=== PATIENT | female | born 1955 | race Caucasian/White ===

== ENCOUNTER → 2020-11-23 | Outpatient (CLI) | payer MEDICARE, OTHER ==
[2020-11-23 09:20] LABS: BLOOD UREA NITROGEN 13 MG/DL (7-18); CREATININE FOR GFR 0.65 MG/DL (0.55-1.30); GLOMERULAR FILTRATION RATE > 60.0 (>45)
== END ==
LOC: M LAB 07:57
PROVIDERS: ATTEND Surgery
DX: R10.12 Left upper quadrant pain (principal)

== ENCOUNTER → 2020-11-25 | Outpatient (CLI) | payer MEDICARE, OTHER ==
[~2020-11-25] MED LIST: GASTROGRAFIN SOLUTION 30ML (Q9963) As Ordered ONE; ISOVUE-370 76% 100ML VIAL As Ordered ONE
--- NOTE | 2020-11-25 12:44 | REP ---
INDICATION: LUQ PAIN. COMPARISON: None. TECHNIQUE: Standard helical technique after the intravenous administration of 100 cc Isovue 370 and oral bowel preparatory contrast administration. FINDINGS: The lung bases are clear. Minimal bibasilar subsegmental atelectatic changes are suspected. The pre contrast enhanced portion examination shows hepatic and splenic densities to be within normal limits. There are no nephroliths are cholelith. Postcontrast enhanced portion examination shows the liver, gallbladder, spleen, pancreas, and adrenal glands to be within normal limits. There are 2 tiny low-density foci seen in the anterior cortex of the superior pole of the left kidney. These are too small for precise CT characterization but likely represent tiny simple cortical cysts. The right kidney is unremarkable. The abdominal aorta and para-aortic regions are within normal limits. Small para-aortic lymph nodes are noted. The bowel loops and the mesenteries are within normal limits. The appendix is gas-filled but otherwise unremarkable. There is no free fluid or free air. There is no evidence of a mass or adenopathy. The osseous structures are within normal limits for the patient's age. IMPRESSION: There is no evidence of acute disease. CT findings are within normal limits as described above. Two probable tiny renal cysts as described. <Electronically signed by Taran Cisneros > 11/25/20 [id number]
== END ==
LOC: M RAD 09:54
PROVIDERS: ATTEND Surgery
DX: R10.12 Left upper quadrant pain (principal)
CPT/HCPCS: 74178; Q9963; Q9967

== ENCOUNTER 2022-10-28 08:08 | Day surgery (SDC) | payer MEDICARE, OTHER ==
[~2022-10-28] VITALS: Ht 160 cm; Wt 86.2 kg
[~2022-10-28 08:08] MED LIST changes: -GASTROGRAFIN SOLUTION 30ML (Q9963) As Ordered ONE; -ISOVUE-370 76% 100ML VIAL As Ordered ONE; +NS 1,000 ML IV ONE; +OMEG10002 PO; +OSTE5TAB PO; +TURM500T PO; +VITA100093 PO
[2022-10-28] MEDS ORDERED: propofoL 200 MG/20 ML VIAL As Ordered ONE ×2 (09:59→10:09)
[2022-10-28] MEDS ORDERED: GLYCOPYRROLATE INJ 0.2 MG/ML 2 ML VIAL As Ordered ONE (10:12)
[2022-10-28 10:56] VITALS: BP 134/60
== END 2022-10-28 10:58 | disposition home or self-care (01) ==
LOC: M OPP 08:08
PROVIDERS: ATTEND Internal Medicine Gastroenterology
DX: Z12.11 Encounter for screening for malignant neoplasm of colon (principal); Z86.010 Personal history of colon polyps; K63.5 Polyp of colon; D12.5 Benign neoplasm of sigmoid colon; K57.30 Diverticulosis of large intestine without perforation or abscess without bleeding; K64.8 Other hemorrhoids

== ENCOUNTER 2025-02-01 13:20 | Emergency (ER) | payer MEDICARE, OTHER ==
[~2025-02-01] VITALS: Ht 157.5 cm; Wt 89.0 kg
[~2025-02-01 13:20] MED LIST changes: -NS 1,000 ML IV ONE
[2025-02-01 14:40] LABS: BASO # 0.0 10^3/uL (0.0-0.2); BASO % 0.2 % (0.0-1.0); EOS # 0.1 10^3/uL (0.0-0.5); EOS % 1.3 % (0.0-3.0); LYMPH # 1.1 10^3/uL (1.5-5.0); LYMPH % 19.8 % (24.0-44.0); MONO # 0.4 10^3/uL (0.0-0.8); MONO % 7.3 % (2.0-8.0); NEUTROPHILS # 3.9 10^3/uL (1.5-8.5); NEUTROPHILS % 71.2 % (36.0-66.0); PLATELET COUNT, AUTOMATED 196 10^3/uL (150-450)
[2025-02-01 15:03] LABS: ALT/SGPT 15 U/L (7.0-40); AST/SGOT 17 U/L (<34); CALCIUM LEVEL 8.9 MG/DL (8.3-10.6); CARBON DIOXIDE LEVEL 27 MMOL/L (20-31); CHLORIDE LEVEL 105 MMOL/L (98-107); CK-MB VALUE MASS 2.0 NG/ML (<3.6); CREATININE FOR GFR 0.71 MG/DL (0.55-1.30); GLOMERULAR FILTRATION RATE > 90.0 (>45); POTASSIUM SERUM 4.1 MMOL/L (3.5-5.1); SODIUM LEVEL 141 MMOL/L (136-145)
[2025-02-01 15:05] LABS: FREE T4 1.41 NG/DL (0.89-1.76)
[2025-02-01 15:06] LABS: CPK CREATINE PHOSPHOKINASE 48 U/L (34-145); MB/CK RELATIVE INDEX 4.16 (< OR =4)
[2025-02-01 16:16] LABS: CK-MB VALUE MASS 2.5 NG/ML (<3.6)
[2025-02-01 16:17] LABS: CPK CREATINE PHOSPHOKINASE 53 U/L (34-145); MB/CK RELATIVE INDEX 4.71 (< OR =4)
[2025-02-01 16:48] LABS: KETONE, URINE AUTO RFX NEGATIVE (NEGATIVE); LEUKOCYTE ESTERASE UR AUTO RFX 3+ (NEGATIVE); MUCUS, URINE RFX SMALL (NEGATIVE); NITRITE, URINE AUTO RFX NEGATIVE (NEGATIVE); RBC, URINE AUTO RFX 11 /HPF (0-3); SQUAM EPITHELIAL CELL UR AURFX 90 /HPF (0-6); WBC, URINE AUTO RFX 85 /HPF (0-3)
[2025-02-01] MEDS ORDERED: BACT800T5 PO (16:54)
[2025-02-01] MEDS: BACTRIM 160MG/800MG DS TAB PO ONE (16:59)
[2025-02-01 17:01] VITALS: BP 126/60; TEMP 98.2; O2SAT 99
== END 2025-02-01 17:09 | disposition home or self-care (01) ==
LOC: M ED 13:20
DX: N39.0 Urinary tract infection, site not specified (principal); R42 Dizziness and giddiness; Z79.899 Other long term (current) drug therapy